=== PATIENT | female | born 1995 | race Caucasian/White ===

== ENCOUNTER 2020-02-17 23:18 | Observation (INO) | payer MEDICAID, OTHER ==
[~2020-02-17] VITALS: Ht 142.2 cm; Wt 64.4 kg
[2020-02-18] MEDS ORDERED: PNV1TABL76 PO (00:35)
[2020-02-18] MEDS ORDERED: NITR-87 PO (00:35)
== END 2020-02-18 01:30 | disposition home or self-care (01) ==
LOC: 8 EST LDRP 23:18
PROVIDERS: ADMIT Specialist; ATTEND Specialist
DX: O26.893 Other specified pregnancy related conditions, third trimester (principal); R10.9 Unspecified abdominal pain; O99.89 Other specified diseases and conditions complicating pregnancy, childbirth and the puerperium; M54.5 Low back pain; Z3A.37 37 weeks gestation of pregnancy
CPT/HCPCS: 99281; G0378